=== PATIENT | female | born 1975 | race Caucasian/White ===

== ENCOUNTER → 2016-11-04 | Outpatient (CLI) | payer OTHER, MEDICAID ==
[~2016-11-04] VITALS: Ht 156.2 cm; Wt 176.0 kg
[~2016-11-04] MED LIST: ADIPEX-P37.5 MG PO; ADVIL200 MG PO; LEVOXYL0.15 MG PO; MOTRIN 600600 MG/TAB PO; PERCOCET 325 MG1 TA2 PO; PRENATAL MVI; TRANDATE 200MG200 MG PO; ZOFRAN ODT8 MG PO
[2016-11-04 15:37] VITALS: BP 142/70; PULSE 84
== END ==
LOC: LIGHT 14:19
DX: E03.9 Hypothyroidism, unspecified (principal); E66.01 Morbid (severe) obesity due to excess calories; Z68.45 Body mass index [BMI] 70 or greater, adult; Z71.3 Dietary counseling and surveillance; N39.3 Stress incontinence (female) (male); I87.2 Venous insufficiency (chronic) (peripheral)

== ENCOUNTER → 2016-11-18 | Outpatient (CLI) | payer OTHER, MEDICAID | LOC: LIGHT 13:08 | DX: Z01.818 Encounter for other preprocedural examination (principal) ==

== ENCOUNTER → 2016-12-02 | Outpatient (CLI) | payer OTHER, MEDICAID ==
[~2016-12-02] VITALS: Ht 156.2 cm; Wt 174.2 kg
[2016-12-02 14:19] VITALS: BP 124/60; PULSE 80
== END ==
LOC: LIGHT 10:49
DX: E03.9 Hypothyroidism, unspecified (principal); E66.01 Morbid (severe) obesity due to excess calories; Z68.45 Body mass index [BMI] 70 or greater, adult; Z71.3 Dietary counseling and surveillance; N39.3 Stress incontinence (female) (male); I87.2 Venous insufficiency (chronic) (peripheral)

== ENCOUNTER → 2017-01-13 | Outpatient (CLI) | payer OTHER, MEDICAID ==
[~2017-01-13] VITALS: Ht 156.2 cm; Wt 174.9 kg
[~2017-01-13] MED LIST changes: +TOPAMAX 25MG25 M1 PO
[2017-01-13 14:55] VITALS: BP 122/84; PULSE 72
== END ==
LOC: LIGHT 01-06 10:14
DX: E03.9 Hypothyroidism, unspecified (principal); E66.01 Morbid (severe) obesity due to excess calories; Z68.45 Body mass index [BMI] 70 or greater, adult; Z71.3 Dietary counseling and surveillance; N39.3 Stress incontinence (female) (male); I87.2 Venous insufficiency (chronic) (peripheral)

== ENCOUNTER → 2017-01-28 | Outpatient (CLI) | payer OTHER, MEDICAID | LOC: LIGHT 14:58 | DX: Z01.818 Encounter for other preprocedural examination (principal) ==

== ENCOUNTER → 2017-04-07 | Outpatient (CLI) | payer OTHER, MEDICAID ==
[~2017-04-07] VITALS: Ht 156.2 cm; Wt 180.8 kg
[2017-04-07 14:03] VITALS: BP 120/70; PULSE 82
== END ==
LOC: LIGHT 02-10 10:27
DX: E03.9 Hypothyroidism, unspecified (principal); E66.01 Morbid (severe) obesity due to excess calories; Z68.45 Body mass index [BMI] 70 or greater, adult; Z71.3 Dietary counseling and surveillance; N39.3 Stress incontinence (female) (male); I87.2 Venous insufficiency (chronic) (peripheral)
CPT/HCPCS: G0463

== ENCOUNTER → 2017-06-11 | Outpatient (CLI) | payer OTHER, MEDICAID ==
[~2017-06-11] VITALS: Ht 156.2 cm; Wt 181.7 kg
[~2017-06-11] MED LIST changes: +ATARAX 25MG25 MG/TAB PO
[2017-06-11 14:34] VITALS: BP 122/80; PULSE 90
== END ==
LOC: LIGHT 05-05 15:24
DX: E03.9 Hypothyroidism, unspecified (principal); E66.01 Morbid (severe) obesity due to excess calories; Z68.45 Body mass index [BMI] 70 or greater, adult; Z71.3 Dietary counseling and surveillance; N39.3 Stress incontinence (female) (male); I87.2 Venous insufficiency (chronic) (peripheral)
CPT/HCPCS: G0463

== ENCOUNTER → 2017-06-12 | Outpatient (CLI) | payer BC, MEDICAID ==
[2017-06-12 16:13] LABS: CALCIUM 9.5 mg/dL (8.4-10.2); CREATININE, serum 0.64 mg/dL (0.52-1.25); POTASSIUM 4.8 mmol/L (3.4-5.0)
[2017-06-12 16:44] LABS: THYROID STIMULATING HORMONE 7.18 uIU/mL (0.465-4.680)
== END ==
LOC: COL.LAB 11:55
PROVIDERS: Family Medicine
DX: E03.9 Hypothyroidism, unspecified (principal); R25.2 Cramp and spasm

== ENCOUNTER → 2017-10-05 | Outpatient (CLI) | payer BC, MEDICAID | LOC: BHSO 13:45 | DX: F41.0 Panic disorder [episodic paroxysmal anxiety] (principal) ==

== ENCOUNTER → 2017-10-12 | Outpatient (CLI) | payer BC, MEDICAID | LOC: BHSO 10:03 | DX: F41.1 Generalized anxiety disorder (principal) ==

== ENCOUNTER → 2017-10-26 | Outpatient (CLI) | payer BC, MEDICAID | LOC: ZCOL.LAB 16:57 | DX: J02.9 Acute pharyngitis, unspecified (principal) ==

== ENCOUNTER → 2017-11-05 | Outpatient (CLI) | payer BC, MEDICAID ==
[~2017-11-05] VITALS: Ht 156.2 cm; Wt 184.8 kg
[2017-11-05 15:40] VITALS: BP 136/88; PULSE 92
== END ==
LOC: LIGHT
DX: E03.9 Hypothyroidism, unspecified (principal); N39.3 Stress incontinence (female) (male); I87.2 Venous insufficiency (chronic) (peripheral); E66.01 Morbid (severe) obesity due to excess calories; Z68.45 Body mass index [BMI] 70 or greater, adult; Z71.3 Dietary counseling and surveillance
CPT/HCPCS: G0463

== ENCOUNTER → 2017-11-16 | Outpatient (CLI) | payer BC, MEDICAID | LOC: BHSO 10:55 | DX: F41.0 Panic disorder [episodic paroxysmal anxiety] (principal) ==

== ENCOUNTER → 2017-12-01 | Outpatient (CLI) | payer BC, MEDICAID | LOC: BHSO 13:00 | DX: F40.10 Social phobia, unspecified (principal) ==

== ENCOUNTER → 2017-12-02 | Outpatient (CLI) | payer BC, MEDICAID | LOC: BHSO 08:51 | DX: E66.9 Obesity, unspecified (principal); F40.10 Social phobia, unspecified ==

== ENCOUNTER → 2017-12-15 | Outpatient (CLI) | payer BC, MEDICAID | LOC: BHSO 13:02 | DX: F41.0 Panic disorder [episodic paroxysmal anxiety] (principal) ==

== ENCOUNTER 2017-12-29 06:31 | Day surgery (SDC) | payer BC, MEDICAID ==
[~2017-12-29] VITALS: Ht 154.9 cm; Wt 180.1 kg
[2017-12-29 06:58] VITALS: BP 172/95; PULSE 100; TEMP 99.1
[2017-12-29 07:55] VITALS: BP 145/78; PULSE 90; TEMP 98.8
[2017-12-29 08:10] VITALS: BP 137/76; PULSE 87
[2017-12-29 08:25] VITALS: BP 143/77; PULSE 86
== END 2017-12-29 08:39 | disposition home or self-care (01) ==
LOC: SDCO 06:31
DX: K31.7 Polyp of stomach and duodenum (principal); K21.9 Gastro-esophageal reflux disease without esophagitis; K29.30 Chronic superficial gastritis without bleeding; K29.80 Duodenitis without bleeding; E03.9 Hypothyroidism, unspecified; E66.01 Morbid (severe) obesity due to excess calories; Z68.45 Body mass index [BMI] 70 or greater, adult
CPT/HCPCS: OP; J2704; J7030

== ENCOUNTER → 2018-01-01 | Outpatient (CLI) | payer BC, MEDICAID ==
[2018-01-01 18:23] LABS: THYROID STIMULATING HORMONE 5.93 uIU/mL (0.465-4.680)
== END ==
LOC: ZCOL.LAB 17:16
PROVIDERS: Family Medicine
DX: Z01.812 Encounter for preprocedural laboratory examination (principal); E03.9 Hypothyroidism, unspecified; E66.01 Morbid (severe) obesity due to excess calories

== ENCOUNTER → 2018-01-07 | Outpatient (CLI) | payer BC, MEDICAID ==
[~2018-01-07] VITALS: Ht 155.1 cm; Wt 177.6 kg
[2018-01-07 11:35] VITALS: BP 132/80; PULSE 72
== END ==
LOC: LIGHT 10:58
DX: E03.9 Hypothyroidism, unspecified (principal); N39.3 Stress incontinence (female) (male); E66.01 Morbid (severe) obesity due to excess calories; Z68.34 Body mass index [BMI] 34.0-34.9, adult; Z71.3 Dietary counseling and surveillance
CPT/HCPCS: G0463